=== PATIENT | male | born 1970 | race Hispanic/Latino ===

== ENCOUNTER 2017-01-13 21:52 | Emergency (ER) | payer MEDICARE ==
[2017-01-13 22:35] LABS: Basophils % (Auto) 0.7 % (0.0-1.8); Eosinophils % (Auto) 3.3 % (0.0-4.3); Hematocrit 44.4 % (35.5-45.6); Mean Corpuscular HGB Conc 34 % (32-34); Mean Corpuscular Hemoglobin 30 pg (28-32); Mean Corpuscular Volume 88 fl (84-94); Platelet Count 240 K/mm3 (140-440); Red Blood Count 5.05 M/mm3 (3.65-5.03); Red Cell Distribution Width 13.4 % (13.2-15.2); White Blood Count 11.1 K/mm3 (4.5-11.0)
[2017-01-13 22:51] LABS: Alanine Aminotransferase 14 units/L (7-56); Albumin 3.9 g/dL (3.9-5); Albumin/Globulin Ratio 1.3 %; Alkaline Phosphatase 96 units/L (35-129); Anion Gap 19 mmol/L; Bilirubin,Total 0.2 mg/dL (0.1-1.2); Blood Urea Nitrogen 8 mg/dL (9-20); Calcium 8.7 mg/dL (8.4-10.2); Carbon Dioxide 24 mmol/L (22-30); Chloride 96.6 mmol/L (98-107); Glucose 410 mg/dL (75-100); Lipase 102 units/L (13-60); Potassium 4.4 mmol/L (3.6-5.0); Sodium 135 mmol/L (137-145); Total Protein 6.8 g/dL (6.3-8.2)
[2017-01-14 00:17] LABS: Bilirubin,Urine NEG (Negative); Blood,Urine NEG (Negative); Ketones,Urine NEG (Negative); Leukocyte Esterase,Urine NEG (Negative); Nitrite,Urine NEG (Negative); Protein,Urine <15 mg/dL mg/dL (Negative)
[2017-01-14] MEDS ORDERED: NACL 0.9% 1000 ML 1,000 ML IV ONE (04:08)
[2017-01-14] MEDS ORDERED: ZOFRAN IV ONE (04:10)
[2017-01-14] MEDS ORDERED: NACL ONE (04:13)
[2017-01-14] MEDS ORDERED: MORPHINE IV ONE (05:04)
--- NOTE | 2017-01-14 05:09 | Emergency Department Report ---
HPI - General Chief Complaint: Abdominal Pain Time Seen by Provider: 01/14/17 04:18 - HPI HPI: The patient's 46 yo male whom presents for evaluation of abdominal pain. The patient reports epigastric abdominal pain on and off for the past 2 weeks, constant for the past one day, 10/10 in severity, sharp in quality, exacerbated with retching, and associated with nausea and multiple episodes of vomiting. He states that he is experiencing vomiting with every meal. The patient denies fever, chills, night sweats, diarrhea, blood in the stool, dark tarry stool, dysuria, hematuria, flank pain, genital discharge, inability to pass flatus. ED Past Medical Hx - Past Medical History Previous Medical History?: Yes Hx Hypertension: Yes Hx Diabetes: Yes Additional medical history: high cholesterol, Pancreatitis - Surgical History Past Surgical History?: Yes Hx Appendectomy: Yes Additional Surgical History: eyexe ear, head, hernia, rectum - Social History Smoking Status: Current Every Day Smoker Substance Use Type: None - Medications Home Medications: Home Medications Medication Instructions Recorded Confirmed Last Taken Type HYDROcodone/APAP 7.5-325 [[place] 1 each PO Q8HR PRN #15 tablet 01/14/17 Unknown Rx 7.5-325 mg TAB] Ondansetron [Zofran TAB] 4 mg PO Q8HR PRN #15 tablet 01/14/17 Unknown Rx ED Review of Systems ROS: Stated complaint: PANCREATITIS Other details as noted in HPI Constitutional: denies: fever ENT: denies: throat or neck pain Respiratory: denies: cough, shortness of breath Cardiovascular: denies: chest pain Endocrine: denies unexplained weight loss or gain Gastrointestinal: reports abdominal pain, nausea Genitourinary: denies: dysuria Musculoskeletal: denies: leg swelling Skin: denies: rash Neurological: denies: headache Hematological/Lymphatic: denies: easy bleeding or easy bruising Psych: denies sadness or hopelessness Physical Exam - Physical Exam Vital Signs: Vital Signs 01/13/17 22:06 Temperature 98.2 F Pulse Rate 77 Respiratory 18 Rate Blood Pressure 164/73 O2 Sat by Pulse 98 Oximetry Physical Exam: General: well-nourished, well-developed, no acute distress Head: Normocephalic, atraumatic Eyes: normal sclera ENT: Mucous membranes are pale and dry Neck: No neck stiffness, no cervical adenopathy Respiratory: Breath sounds equal bilaterally, no wheezing, rales, or rhonchi Cardio: S1 and S2 present, no murmurs, rubs, gallops, capillary refill is delayed Abdomen: Normoactive bowel sounds, soft abdomen, generalized tenderness to palpation present, no rigidity, no guarding or rebound tenderness Chest WALL/Back: No tenderness to palpation of the chest wall, no CVA tenderness with percussion Musc: No pitting edema Skin: No rash Neuro: no facial drooping, normal speech Psych: Normal affect ED Course Vital Signs 01/13/17 22:06 Temperature 98.2 F Pulse Rate 77 Respiratory 18 Rate Blood Pressure 164/73 O2 Sat by Pulse 98 Oximetry ED Medical Decision Making - Lab Data Result diagrams: 01/13/17 22:18 01/13/17 22:18 - Medical Decision Making The patient was seen and examined by myself. The patient is placed on a head worker and continuous pulse ox. On initial evaluation, the patient was found to be in no distress. Evaluation orders are placed. IV access is established and the patient is given 1 L normal saline fluid bolus for treatment of dehydration, and Zofran for nausea, and IV morphine for pain. Lab results revealed mildly elevated lipase of 100, and mildly elevated WBC of 11, and otherwise labs were non-concerning including hemoglobin, hematocrit, electrolytes, renal function, LFTs. CT scan abdomen and pelvis reveals findings suggestive of mild pancreatitis. The patient was reevaluated and reported that their symptoms were markedly improved. The patient is stable for discharge with outpatient follow-up. The patient is given follow-up and return instructions. The patient expressed understanding and agreed with the plan. The patient is discharged in stable condition. Critical care attestation.: If time is entered above; I have spent that time in minutes in the direct care of this critically ill patient, excluding procedure time. ED Disposition Clinical Impression: Dehydration, Acute generalized abdominal pain Pancreatitis, acute Qualifiers: Pancreatitis type: unspecified pancreatitis type Acute pancreatitis complication: unspecified Qualified Code(s): K85.90 - Acute pancreatitis without necrosis or infection, unspecified Disposition: DISCHARGED TO HOME OR SELFCARE Is pt being admited?: No Does the pt Need Aspirin: No Condition: Stable Instructions: Pancreatitis (ED) Referrals: HEATHER SAXENA MD [Primary Care Provider] - 3-5 Days Time of Disposition: 05:06
--- NOTE | 2017-01-14 05:54 | Cat Scan Report ---
FINAL REPORT PROCEDURE: CT ABDOMEN PELVIS W CON TECHNIQUE: Computerized axial tomography of the abdomen and pelvis was performed after the IV injection of iodinated nonionic contrast. HISTORY: recurrent vomting and abdominal pain COMPARISON: No prior studies are available for comparison. FINDINGS: Visualized lower thorax: No significant abnormality. Liver: Normal size and attenuation. Spleen: Normal size and attenuation. Gallbladder and biliary system: Normal. Pancreas: There is mild peripancreatic edema which could be evidence of pancreatitis. There are prominent peripancreatic lymph nodes. There is no pancreatic mass or pseudocyst. Correlation with amylase and lipase levels may be helpful.. Adrenals: There is a 9 millimeter low-density lesion in the right adrenal gland suggesting an adenoma.. Kidneys: Normal. GI tract: There is no bowel obstruction, colitis or enteritis. There are diverticula of the sigmoid and left colon. Appendix is not identified.. Lymph nodes and mesentery: Normal. Vasculature: Normal. Bladder: Normal. Reproductive organs: Normal. Peritoneum: There is no ascites or free air.. Musculoskeletal structures: No significant abnormality. Other: None. IMPRESSION: There is mild peripancreatic edema which could be evidence of pancreatitis. There are prominent peripancreatic lymph nodes. There is no pancreatic mass or pseudocyst. Correlation with amylase and lipase levels may be helpful.. There is a 9 millimeter low-density lesion in the right adrenal gland suggesting an adenoma.. There is no bowel obstruction, colitis or enteritis. There are diverticula of the sigmoid and left colon. Appendix is not identified.. There is no ascites or free air..
[2017-01-14 07:21] VITALS: BP 138/66
== END 2017-01-14 07:19 | disposition home or self-care (01) ==
LOC: ED 21:52
DX: E86.0 Dehydration (principal); R10.84 Generalized abdominal pain; K85.90 Acute pancreatitis without necrosis or infection, unspecified; I10 Essential (primary) hypertension; E11.9 Type 2 diabetes mellitus without complications; E78.00 Pure hypercholesterolemia, unspecified; F17.200 Nicotine dependence, unspecified, uncomplicated; Z90.89 Acquired absence of other organs; Z88.8 Allergy status to other drugs, medicaments and biological substances
CPT/HCPCS: 36415; 74177; 80048; 80053; 81001; 82150; 82805; 82962; 83690; 85025; 96361; 96374; 96375; 99285; J2270; J2405; J7030; Q9967; J1815